=== PATIENT | male | born 1995 | race Caucasian/White ===

== ENCOUNTER 2017-02-08 16:37 | Emergency (ER) | payer OTHER ==
[2017-02-08 16:42] VITALS: TEMP 98.2; BMI 22.3
--- NOTE | 2017-02-08 16:51 | PDOC ---
History of Present Illness - General Chief Complaint: Pain Stated Complaint: STOMACH PAIN Time Seen by Provider: 02/08/17 16:47 History Source: Patient Exam Limitations: No Limitations - History of Present Illness Travel History: No Initial Comments: 02/09/17 02:37 The patient is a 21 year old male, with no significant past medical history, who presents to the emergency room complaining of left sided abdominal pain, dark urine, and chest pain. He describes the abdominal pain as numb, hot, and sharp. Today, the abdominal pain is the worst he has ever felt. He states that this pain has occurred for months, but he has not had health insurance until recently. This morning, his urine was normally yellow in color, until about 12:00 pm when he noticed it turned dark orange in color. The patient reports dysuria. He also reports that his bowel movements have not been regular for some time. He has been constipated with bright brown stool. His last bowel movement was this morning and it was soft and lucas in color. He reports stabbing chest pain that occurred this morning and radiated to his back and is accompanied by palpitations. He reports difficulty breathing and numbness and tingling in his feet. The patient notes that he smoked Marijuana this morning with his friend. His friend is not exhibiting any unusual symptoms. He reports that he visited the [facility] for this abdominal pain a couple of weeks ago where they tested his blood work. He reports intermittent left testicular pain that has occurred for months. (He previously had testicular surgery 2 years ago). Denies fever, nausea, vomiting. Denies melena, hematochezia. Denies recent changes in diet. Allergies: None reported Social Hx: Marijuana use. No other recreational drug use. The patient works overnights at a f[employer]. Surgical Hx: Testicular surgery at [facility] (2 years ago) Past History - Past Medical History Allergies/Adverse Reactions: Allergies Allergy/AdvReac Type Severity Reaction Status Date / Time No Known Allergies Allergy Verified 02/08/17 16:39 Home Medications: Ambulatory Orders NK [No Known Home Medication] 02/08/17 - Psycho/Social/Smoking Cessation Hx Suicidal Ideation: No Smoking History: Never smoked Review of Systems - Review of Systems Able to Perform ROS?: Yes Comments:: 02/09/17 02:37 CONSTITUTIONAL: No reported: Fever, Chills, Diaphoresis, Generalized Weakness, Malaise, Loss of Appetite HEENT: No reported: Rhinorrhea, Nasal Congestion, Throat Pain, Throat Swelling, Difficulty Swallowing, Mouth Swelling, Ear Pain, Eye Pain, Visual Changes CARDIOVASCULAR: Reported: chest pain that radiates to the back, palpitations No reported:Syncope, Irregular Heart Rate, Lightheadedness, Peripheral Edema RESPIRATORY: No reported: Cough, Shortness of Breath, SOB with Exertion, Orthopnea, Wheezing , Stridor, Hemoptysis GASTROINTESTINAL: Reported: left sided abdominal pain, constipation No reported: Abdominal Distension, Nausea, Vomiting, Diarrhea, Constipation, Melena, Hematochezia GENITOURINARY: Reported: dysuria No reported: Frequency, Urgency, Hesitancy, Flank Pain, Genital Pain MUSCULOSKELETAL: No reported: Myalgia, Arthralgia, Joint Swelling, Back pain, Neck Pain SKIN: No reported: Rash, Itching, Pallor HEMEATOLOGIC/IMMUNOLOGIC: No reported: Easy Bleeding, Easy Bruising, Lymphadenopathy, Frequent infections ENDOCRINE: No reported: Unexplained Weight Gain, Unexplained Weight Loss, Heat Intolerance , Cold Intolerance NEUROLOGIC: No reported: Headache, Focal Weakness, Paresthesias, Vertigo, Lightheadedness, Unsteady Gait, Seizure, Mental Status Changes, Incontinence PSYCHIATRIC: No reported: Anxiety, Depression *Physical Exam - Vital Signs Last Vital Signs Temp Pulse Resp BP Pulse Ox 98.2 F 151 H 18 153/88 100 02/08/17 16:39 02/08/17 16:39 02/08/17 16:39 02/08/17 16:39 02/08/17 16:39 - Physical Exam Comments: 02/09/17 02:37 GENERAL: The patient is awake, alert, and fully oriented, Nontoxic - pale and generally weak appearing HEAD: Normocephalic, atraumatic. EYES: extraocular movements intact, sclera anicteric, conjunctiva clear. ENT: Normal voice, dry mucous membranes. NECK: Normal range of motion, supple LUNGS: Breath sounds equal, clear to auscultation bilaterally. No wheezes, no rhonchi, no rales. HEART: tachycardic, no m/r/g appreciated ABDOMEN: Soft, mild LLQ tenderness, normoactive bowel sounds. No guarding, no rebound, mild L testiclar tenderness, without edema, induration, discoloration, masses cremesteric reflex intact EXTREMITIES: Normal range of motion, no edema. no calf tenderness NEUROLOGICAL: No facial assymetry, Normal speech, movinga ll 4 extremities spotaenously and symmetrically PSYCH: Normal mood, normal affect. SKIN: pale/ashen apeparnce, Dry, Heart Score/ECG Review - ECG Impressions Comment:: 02/08/17 18:48 Twelve-lead EKG was performed and reviewed by me. There is normal sinus rhythm with a rate of 129 The axis is normal. The intervals are normal. There is normal R wave progression nonspecific tw abnormality Impression: Sinus tachycardia ED Treatment Course - LABORATORY CBC & Chemistry Diagram: 02/08/17 17:00 02/08/17 18:12 Medical Decision Making - Medical Decision Making 02/08/17 17:17 21y M no known pmhx presents wtih L sided abdominal pain - pt states he has been having L sided abdominal homer for several months - but today, wasnt feeling well, also endorsed some chest pain radiating to the back this morning but that has improved. no associated f/c, n/v, diarrhea (did note some light brown stools) w/o bpr, melena, on exam the pt appears pale/ashen, dry mmm, , mild tenderness in the LLQ, pulses awere intact and symmetric throughout - BP was similar in both upper extremities. pts testicular exam was normal with no induration, focal tenderness, discoloration, cremesteric reflex intact. no tox ingestions, did smoke pot this morning, but jamaal any recent other illicit drug use pts HR was elevated to 150s at triage, slightly hypertensive differential is wide and includes metabolic derangement, anemia, occult infection, ?renal failure, sepsis consider imaging will ck labs, lactic acid, ua, utox agressive fluid hydration A portion of this note was documented by scribe services under my direction. I have reviewed the details of the note, within reason, and agree with the documentation with the following case summary and management plan written by me 02/08/17 19:35 pts labs reviewed and are remarkably normal ua is concentrated but otherwise unremarkable pt clinically appears significantly improved HR improved to 94 after 2L - will continue hydration will obtain CT abdomen due to his pain 02/09/17 00:15 pt appears significanly improved, vitals normalized ?possible pts pot he smoked this AM was cut with something beside marijuana? currently feels well, no associated pain will have pt fu with pmd and urology for further management returnprecautions were discussed I discussed the physical exam findings, ancillary test results and final diagnoses with the patient. I answered all of the patient's questions. The patient was satisfied with the care received and felt comfortable with the discharge plan and treatment plan. The patient will call their primary care physician within 24 hours to arrange follow-up and will return to the Emergency Department with any new, persistent or worsening symptoms. CRITICAL CARE DOCUMENTATION: I spent ~45 minutes of Critical Care time, excluding separately billable procedures, involving high complexity decision making to assess, manipulate and support vital system function(s) to treat single or multiple vital organ system failure and/or to prevent further life threatening deterioration of the patient' s condition. *DC/Admit/Observation/Transfer Diagnosis at time of Disposition: Dehydration Abdominal pain Qualifiers: Abdominal location: left upper quadrant Qualified Code(s): R10.12 - Left upper quadrant pain - Discharge Dispostion Disposition: HOME Condition at time of disposition: Improved Admit: No - Referrals Referrals: [facility] [Provider Group] Finesse Ryder MD [Staff Physician] - - Patient Instructions Printed Discharge Instructions: DI for Abdominal Pain-Adult Additional Instructions: Return to the emergency department immediately with ANY new, persistent or worsening symptoms including worsening abdominal pain, fevers, inability to tolerate oral intake, chest pain, shortness of breath or any other concerns. Stay well hydrated. You MUST call and follow up with your doctor tomorrow. Your emergency department visit is not complete without a followup with your doctor for reevaluation. Please make sure your doctor reviews the results of your emergency evaluation. Print Language: KYRGYZ
[2017-02-08] MEDS ORDERED: SODIUM CHLORIDE 1,000 ML IV ONE ×3 (16:53→18:42)
[2017-02-08 17:24] LABS: URINE APPEARANCE CLEAR; URINE BILIRUBIN NEGATIVE (NEGATIVE); URINE BLOOD NEGATIVE (NEGATIVE); URINE COLOR YELLOW; URINE GLUCOSE (UA) NEGATIVE (NEGATIVE); URINE KETONE NEGATIVE (NEGATIVE); URINE NITRITE NEGATIVE (NEGATIVE); URINE PROTEIN NEGATIVE (NEGATIVE); URINE UROBILINOGEN NEGATIVE E.U./dl (0.2-1.0)
[2017-02-08 17:26] LABS: URINE LEUK ESTERASE TRACE (NEGATIVE)
[2017-02-08 17:27] LABS: URINE MUCUS MODERATE; URINE RBC 2 /hpf (0-3); URINE WBC 1 /hpf (3-5)
[2017-02-08 17:30] LABS: BASOPHIL 0.3 % (0-2.0); EOSINOPHIL 0.9 % (0-4.5); MCH 25.7 pg (25.7-33.7); MCHC 33.1 g/dl (32.0-35.9); MEAN CELL VOLUME 77.8 fl (80-96); MEAN PLT VOLUME 8.8 fl (7.5-11.1); NEUTROPHILS 61.7 % (42.8-82.8); PLATELET COUNT 259 K/MM3 (134-434); RDW 13.4 % (11.9-15.9); WHITE BLOOD COUNT 10.5 K/mm3 (4.0-10.0)
[2017-02-08 17:34] LABS: URINE MARIJUANA THC POSITIVE ng/ml (CUTOFF=50)
[2017-02-08 17:38] LABS: INR 1.12 (0.82-1.09); PROTHROMBIN TIME (PATIENT) 12.4 SEC (9.98-11.88)
[2017-02-08 18:37] LABS: SALICYLATE < 4.0 mg/dl (0.0-30.0)
[2017-02-08 18:50] LABS: ALBUMIN 3.7 g/dl (3.4-5.0); ALK PHOS 67 U/L (45-117); ANION GAP 8 (8-16); BILIRUBIN,TOTAL 0.3 mg/dL (0.2-1.0); CALCIUM 7.8 mg/dL (8.5-10.1); CO2 27 mmol/L (21-32); COCKROFT - GAULT 132.15; CREATININE 0.9 mg/dL (0.7-1.3); GLUCOSE,RANDOM 114 mg/dL (74-106); SGOT/AST 22 U/L (15-37); SGPT/ALT 30 U/L (12-78); TOT PROT 6.5 g/dl (6.4-8.2)
[2017-02-08 22:01] VITALS: BP 106/60; PULSE 80
--- NOTE | 2017-02-09 11:25 | EKG ---
Test Reason : Blood Pressure : / mmHG Vent. Rate : 129 BPM Atrial Rate : 129 BPM P-R Int : 156 ms QRS Dur : 106 ms QT Int : 302 ms P-R-T Axes : 069 081 018 degrees QTc Int : 442 ms SINUS TACHYCARDIA POSSIBLE LEFT ATRIAL ENLARGEMENT T WAVE ABNORMALITY, CONSIDER INFERIOR ISCHEMIA ABNORMAL ECG NO PREVIOUS ECGS AVAILABLE Confirmed by SHALONDA JEREZ MD ([id number]) on 02/09/2017 11:25:08 AM Referred By: Confirmed By:SHALONDA JEREZ MD
== END 2017-02-09 00:31 | disposition home or self-care (01) ==
LOC: JER 16:37
PROC: 3E0337Z Introduction of Electrolytic and Water Balance Substance into Peripheral Vein, Percutaneous Approach (ICD-10-PCS; principal; 2017-02-08)
DX: R10.12 Left upper quadrant pain (principal); E86.0 Dehydration
CPT/HCPCS: 74177-TC; 80053; 80307; 82248; 82272; 82550; 83605; 83690; 85025; 85379; 85610; 86850; 86900; 86901; 93005; 93010; 99284-25

== ENCOUNTER 2019-01-07 12:31 | Emergency (ER) | payer OTHER ==
[2019-01-07 12:37] VITALS: BP 134/70; PULSE 92; TEMP 97.9; BMI 24.4
[2019-01-07] MEDS ORDERED: IBUPROFEN 400 MG TABLET (FP) PO ONE ×2 (13:13→13:18)
--- NOTE | 2019-01-07 13:14 | PDOC ---
History of Present Illness - General Chief Complaint: Injury Stated Complaint: BILAT HAND SWELLING Time Seen by Provider: 01/07/19 12:51 History Source: Patient Exam Limitations: No Limitations Past History - Travel Traveled outside of the country in the last 30 days: No Close contact w/someone who was outside of country & ill: No - Past Medical History Allergies/Adverse Reactions: Allergies Allergy/AdvReac Type Severity Reaction Status Date / Time No Known Allergies Allergy Verified 01/07/19 12:33 Home Medications: Ambulatory Orders NK [No Known Home Medication] 02/08/17 COPD: No - Immunization History Immunization Up to Date: Yes - Suicide/Smoking/Psychosocial Hx Smoking History: Never smoked Hx Alcohol Use: No Drug/Substance Use Hx: No Review of Systems - Review of Systems Able to Perform ROS?: Yes Comments:: 01/07/19 13:11 CONSTITUTIONAL: Absent: fever, chills, diaphoresis, generalized weakness, malaise, loss of appetite MUSCULOSKELETAL: Present: bilateral hand swelling/brusing Absent: arthralgia, joint swelling SKIN: Absent: rash, itching, pallor HEMATOLOGIC/IMMUNOLOGIC: Absent: easy bleeding, easy bruising, lymphadenopathy, frequent infections ENDOCRINE: Absent: unexplained weight gain, unexplained weight loss, heat intolerance, cold intolerance NEUROLOGIC: Absent: headache, focal weakness or paresthesias, dizziness, unsteady gait, seizure, mental status changes, bladder or bowel incontinence PSYCHIATRIC: Absent: anxiety, depression, suicidal or homicidal ideation, hallucinations. Is the patient limited Ukrainian proficient: No *Physical Exam - Vital Signs Last Vital Signs Temp Pulse Resp BP Pulse Ox 97.9 F 92 H 16 134/70 99 01/07/19 12:34 01/07/19 12:34 01/07/19 12:34 01/07/19 12:34 01/07/19 12:34 - Physical Exam Comments: 01/07/19 13:59 GENERAL: Well developed, well nourished. Awake and alert. No acute distress. HEENT: Normocephalic, atraumatic. PERRLA, EOMI. No conjunctival pallor. Sclera are non- icteric. Moist mucous membranes. Oropharynx is clear. NECK: Supple. Full ROM. No JVD. Carotid pulses 2+ and symmetric, without bruits. No thyromegaly. No lymphadenopathy. MUSCULOSKELETAL TTP of the 4th and 5th metacarples b/l with associated swelling. PMS intact. Normal range of motion at all joints. No CVA tenderness. EXTREMITIES: No cyanosis. No clubbing. No edema. No calf tenderness. SKIN: Warm and dry. Normal capillary refill. No rashes. No jaundice. NEUROLOGICAL: Alert, awake, appropriate. Cranial nerves 2-12 intact. No deficits to light touch and temperature in face, upper extremities and lower extremities. No motor deficits in the in face, upper extremities and lower extremities. Normoreflexic in the upper and lower extremities. Normal speech. Toes are down- going bilaterally. Gait is normal without ataxia. PSYCHIATRIC: Cooperative. Poor eye contact. Tearful on exam. Denies SI/HI. No suicidal plan. No A/V hallucinations Moderate Sedation - Procedure Monitoring Vital Signs: Procedure Monitoring Vital Signs Temperature 97.9 F 01/07/19 12:34 Pulse Rate 92 H 01/07/19 12:34 Respiratory Rate 16 01/07/19 12:34 Blood Pressure 134/70 01/07/19 12:34 O2 Sat by Pulse Oximetry (%) 99 01/07/19 12:34 Medical Decision Making - Medical Decision Making 01/07/19 21:09 The patient is a 23-year-old male with no past medical history who presents to the ER for bilateral hand pain. Patient states that he was very upset this evening and he punched a wall twice once with each hand. He is right-hand dominant. He is tearful on exam and very quiet. He will not mention what made him upset. He is just requesting x-rays at this time. Denies suicidal/homicidal ideation. He has no plan for suicide. Denies audiovisual hallucinations. Patient also denies numbness and tingling and weakness to the affected extremities. A/P: Bilateral hand pain On exam patient with tenderness palpation over the left and right fourth and fifth metacarpals. Tylenol given for pain. X-rays obtained of both hands. No acute fractures noted at this time. Anselmo wrap is applied. Discharge home with orthopedic follow-up as well as psychiatric follow-up. Patient states that he is willing to talk to someone about his problems that he had tonight. Discharge home with strict return precautions that if he should have any suicidal thoughts to return to the emergency department immediately. I discussed the physical exam findings, ancillary test results and final diagnoses with the patient. I answered all of the patient's questions. The patient was satisfied with the care received and felt comfortable with the discharge plan and treatment plan. The Patient agrees to follow up with the primary care physician/specialist within 24-72 hours. Return precautions were given. *DC/Admit/Observation/Transfer Diagnosis at time of Disposition: Bilateral hand pain - Discharge Dispostion Disposition: HOME Condition at time of disposition: Stable Decision to Admit order: No - Referrals Referrals: Josafat Guillermo MD [Staff Physician] - Julián Zavala NP [Nurse Practitioner] - - Patient Instructions Printed Discharge Instructions: DI for Hand Pain Additional Instructions: Your x-rays were negative fracture Keep the ANSELMO wrap on your hands to help reduce the swelling You may take Motrin 800mg every 8 hours as needed for pain Keep the hands elevated Follow up with the hand specialist (Dr. Guillermo) in 48-72 hours if your symptoms are not improving Attached are also psychiatry referrals Return to the ED for any new or worsening symptoms - Post Discharge Activity Forms/Work/School Notes: Back to Work
[2019-01-07] MEDS ORDERED: DIPHTH,PERTUSS(ACELL),TET 0.5 ML DISP.SYRIN IM ONE ×2 (13:51→13:53)
== END 2019-01-07 14:00 | disposition home or self-care (01) ==
LOC: JERFT 12:31
PROC: 3E0234Z Introduction of Serum, Toxoid and Vaccine into Muscle, Percutaneous Approach (ICD-10-PCS; principal; 2019-01-07)
DX: M79.89 Other specified soft tissue disorders (principal)
CPT/HCPCS: 73130-TC-LT-FY; 73130-TC-RT-FY; 90471; 90715; 99281-25

== ENCOUNTER 2023-03-16 04:28 | Day surgery (SDC) | payer OTHER ==
[2023-03-12 10:21] VITALS: BMI 28.7
[2023-03-16 10:38] LABS: BASO % 0.5 % (0-2.0); EOS % 4.2 % (0-4.5); HEMATOCRIT 41.5 % (35.4-49); HEMOGLOBIN 13.9 GM/dL (11.7-16.9); LYMPH % 31.1 % (8-40); MCH 26.1 pg (25.7-33.7); MCHC 33.5 g/dl (32.0-35.9); MEAN CELL VOLUME 77.9 fl (80-96); MEAN PLT VOLUME 8.4 fl (7.5-11.1); MONO % 8.4 % (3.8-10.2); NEUT % 55.8 % (42.8-82.8); PLATELET COUNT 226 10^3/uL (134-434); RBC 5.33 M/mm3 (4.00-5.60); RDW 13.7 % (11.9-15.9); WHITE BLOOD COUNT 5.9 K/mm3 (4.0-10.0)
[2023-03-16 10:45] LABS: INR 1.06 (0.83-1.09); PROTHROMBIN TIME (PATIENT) 12.3 SEC (9.7-13.0)
[2023-03-16] MEDS ORDERED: MIDAZOLAM HCL 2 MG/2 ML SINGLE DOSE VIAL ONE (11:40)
[2023-03-16] MEDS ORDERED: FENTANYL CITRATE/PF 50 MCG/ML VIAL ONE (11:40)
[2023-03-16] MEDS ORDERED: SODIUM CHLORIDE 500 ML IV ONE (11:50)
[2023-03-16] MEDS ORDERED: FENTANYL CITRATE/PF 50 MCG/ML VIAL IVPUSH ONE (12:00)
[2023-03-16] MEDS ORDERED: MIDAZOLAM HCL 2 MG/2 ML SINGLE DOSE VIAL IVPUSH ONE (12:00)
[2023-03-16] MEDS ORDERED: ACETAMINOPHEN 1000 MG/100 ML BAG IVPB ONE (12:15)
[2023-03-16 12:59] VITALS: RESP 18
[2023-03-16 16:19] VITALS: BP 119/78; PULSE 74; TEMP 98
== END 2023-03-16 16:21 | disposition home or self-care (01) ==
LOC: JRADIR 04:28
PROVIDERS: ATTEND Internal Medicine Gastroenterology
PROC: 0FB03ZX Excision of Liver, Percutaneous Approach, Diagnostic (ICD-10-PCS; principal; 2023-03-16)
DX: E88.89 Other specified metabolic disorders (principal)
CPT/HCPCS: 36415; 47000; 76705-TC; 76942-TC; 85025; 85610; 87899; 88307-TC; 88313-TC